=== PATIENT | female | born 1985 | race Two or more races ===

== ENCOUNTER 2016-12-24 12:01 | Emergency (ER) | payer SELFPAY ==
[~2016-12-24] VITALS: Ht 157.5 cm; Wt 42.6 kg
[2016-12-24] MEDS ORDERED: IV NORMAL SALINE 1000ML BAG 1,000 ML IV SCH (12:34)
[2016-12-24] MEDS ORDERED: ONDANSETRON PF 4 MG/2 ML VIAL. IV ONE (12:45)
[2016-12-24] MEDS ORDERED: FENTANYL PF 100 MCG/2 ML VIAL. IV PRN (12:45)
[2016-12-24 13:00] LABS: BILIRUBIN,URINE NEGATIVE (NEG); GLUCOSE,URINE NEGATIVE (NEG); NITRITE,URINE NEGATIVE (NEG); PROTEIN,URINE NEGATIVE (NEG-TRACE)
[2016-12-24 13:06] LABS: BACTERIA,URINE 0 /HPF (0-FEW); RBC,URINE 0 /HPF (0-2); SQUAMOUS EPITHELIAL CELL,UR MOD /LPF; WBC,URINE 20-40 /HPF (0-4)
[2016-12-24 13:23] LABS: BASO % 1 % (0-3); EOS % 1 % (0-3); HEMATOCRIT 39.1 % (36.0-47.0); HEMOGLOBIN 13.1 g/dL (12.0-15.5); LYMPH # 2.1 x10^3/uL (1.0-4.8); LYMPH % 34 % (24-48); MEAN CORPUSCULAR HEMOGLOBIN 29 pg (25-35); MEAN CORPUSCULAR HGB CONC 34 g/dL (31-37); MEAN CORPUSCULAR VOLUME 88 fL (79-100); MONO % 8 % (0-9); NEUT % 56 % (31-73); PLATELET COUNT 249 x10^3/uL (140-400); RED BLOOD COUNT 4.47 x10^6/uL (3.50-5.40); RED CELL DISTRIBUTION WIDTH 13.2 % (11.5-14.5); WHITE BLOOD COUNT 6.3 x10^3/uL (4.0-11.0)
--- NOTE | 2016-12-24 13:26 | PHYS DOC ---
Past Medical History Past Medical History: No Pertinent History Past Surgical History: , Tubal ligation Alcohol Use: None Drug Use: None Adult General Chief Complaint Chief Complaint: NAUSEA/VOMITING/DIARRHA HPI HPI Patient is a 31 year old female who presents with 5 days of nonbloody nonbilious emesis associated with nausea and bilateral lower abdominal pain be pains. She also has chills and sweats. States pain has been constant. Last episode of emesis was last night. She denies abdominal swelling, dysuria, hematuria, diarrhea, constipation, bloody stools, cough, dyspnea, rhinorrhea, chest pain. She denies vaginal bleeding or discharge. Review of Systems Review of Systems Constitutional: Denies measured fever [] Eyes: Denies change in visual acuity, redness, or eye pain [] HENT: Denies nasal congestion or sore throat [] Respiratory: Denies cough or shortness of breath [] Cardiovascular: No additional information not addressed in HPI [] GI: Denies bloody stools or diarrhea [] : Denies dysuria or hematuria [] Musculoskeletal: Denies back pain or joint pain [] Integument: Denies rash or skin lesions [] Neurologic: Denies headache, focal weakness or sensory changes [] Endocrine: Denies polyuria or polydipsia [] Current Medications Current Medications Current Medications Medications (Trade) Dose Ordered Sig/Alejandra Start Time Stop Time Status Last Admin Dose Admin Fentanyl Citrate 50 mcg 50 mcg PRN Q15MIN PRN 12/24/16 12:45 12/24/16 16:51 DC 12/24/16 13:29 50 MCG Iohexol (Omnipaque 300 Mg/ml) 75 ml 1X ONCE 12/24/16 14:15 12/24/16 14:18 DC 12/24/16 14:54 75 ML Ondansetron HCl (Zofran) 4 mg 1X ONCE 12/24/16 12:45 12/24/16 12:46 DC 12/24/16 13:28 4 MG Sodium Chloride (Iv Sodium Chloride 0.9% 1000ml Bag) 1,000 ml @ 1,000 mls/hr Q1H 12/24/16 12:34 12/24/16 13:33 DC 12/24/16 13:29 1,000 MLS/HR Allergies Allergies Allergies Coded Allergies Type Severity Reaction Last Updated Verified No Known Drug Allergies 12/24/16 No Physical Exam Physical Exam Constitutional: Well developed, well nourished, no acute distress, non-toxic appearance. [] HENT: Normocephalic, atraumatic, bilateral external ears normal, oropharynx moist, nose normal. [] Eyes: PERRLA, EOMI. [] Neck: Normal range of motion, supple. [] Cardiovascular:Heart rate regular rhythm [] Lungs & Thorax: Bilateral breath sounds clear to auscultation [] Abdomen: Bowel sounds normal, soft, mild bilateral lower abdominal tenderness, no guarding or rebound. [] Skin: Warm, dry, no erythema, no rash. [] Back: No tenderness, no CVA tenderness. [] Extremities: No tenderness, ROM intact, no edema. [] Neurologic: Alert and oriented X 3, normal motor function, normal sensory function, no focal deficits noted. [] Psychologic: Affect normal, judgement normal, mood normal. [] Current Patient Data Vital Signs Vital Signs Date Time Temp Pulse Resp B/P Pulse Ox O2 Delivery O2 Flow Rate FiO2 12/24/16 14:30 16 100 Room Air 12/24/16 12:03 97.4 91 112/76 97.4 Lab Values Laboratory Tests Test 12/24/16 11:49 12/24/16 12:43 12/24/16 13:13 POC Urine HCG, Qualitative Hcg negative (Negative) Urine Collection Type Unknown Urine Color Yellow Urine Clarity Clear Urine pH 7.0 Urine Specific [place] <=1.005 Urine Protein Negativemg/dL (NEG-TRACE) Urine Glucose (UA) Negativemg/dL (NEG) Urine Ketones (Stick) Tracemg/dL (NEG) Urine Blood Negative (NEG) Urine Nitrite Negative (NEG) Urine Bilirubin Negative (NEG) Urine Urobilinogen Dipstick 1.0mg/dL (0.2 mg/dL) Urine Leukocyte Esterase Small (NEG) Urine RBC 0/HPF (0-2) Urine WBC 20-40/HPF (0-4) Urine Squamous Epithelial Cells Mod/LPF Urine Bacteria 0/HPF (0-FEW) White Blood Count 6.3x10^3/uL (4.0-11.0) Red Blood Count 4.47x10^6/uL (3.50-5.40) Hemoglobin 13.1g/dL (12.0-15.5) Hematocrit 39.1% (36.0-47.0) Mean Corpuscular Volume 88fL (79-100) Mean Corpuscular Hemoglobin 29pg (25-35) Mean Corpuscular Hemoglobin Concent 34g/dL (31-37) Red Cell Distribution Width 13.2% (11.5-14.5) Platelet Count 249x10^3/uL (140-400) Neutrophils (%) (Auto) 56% (31-73) Lymphocytes (%) (Auto) 34% (24-48) Monocytes (%) (Auto) 8% (0-9) Eosinophils (%) (Auto) 1% (0-3) Basophils (%) (Auto) 1% (0-3) Neutrophils # (Auto) 3.5x10^3uL (1.8-7.7) Lymphocytes # (Auto) 2.1x10^3/uL (1.0-4.8) Monocytes # (Auto) 0.5x10^3/uL (0.0-1.1) Eosinophils # (Auto) 0.1x10^3/uL (0.0-0.7) Basophils # (Auto) 0.0x10^3/uL (0.0-0.2) Sodium Level 139mmol/L (136-145) Potassium Level 3.5mmol/L (3.5-5.1) Chloride Level 103mmol/L (98-107) Carbon Dioxide Level 27mmol/L (21-32) Anion Gap 9 (6-14) Blood Urea Nitrogen 7mg/dL (7-20) Creatinine 0.7mg/dL (0.6-1.0) Estimated GFR (Cockcroft-Gault) 97.0 Glucose Level 97mg/dL (70-99) Calcium Level 9.4mg/dL (8.5-10.1) Total Bilirubin 0.5mg/dL (0.2-1.0) Direct Bilirubin 0.1mg/dL (0.0-0.2) Aspartate Amino Transferase (AST) 14U/L (15-37) L Alanine Aminotransferase (ALT) 18U/L (14-59) Alkaline Phosphatase 53U/L (46-116) Total Protein 8.3g/dL (6.4-8.2) H Albumin 4.1g/dL (3.4-5.0) Lipase 79U/L (73-393) Serum Test, Qualitative Negative (NEG) Laboratory Tests 12/24/16 13:13 Laboratory Tests 12/24/16 13:13 Radiology/Procedures Radiology/Procedures CT abdomen and pelvis with IV contrast IMPRESSION: No acute abdominal or pelvic finding. DICTATED and SIGNED BY: KEO JONES MD DATE: 12/24/16 1521 Course & Med Decision Making Course & Med Decision Making Pertinent Labs and Imaging studies reviewed. (See chart for details) Workup is unremarkable. She is feeling better after medication and tolerating oral intake. Abdomen soft and minimally tender. Return precautions given. She understands and agrees with plan. Dragon Disclaimer Dragon Disclaimer This electronic medical record was generated, in whole or in part, using a voice recognition dictation system. Departure Departure Impression: Primary Impression: Nausea & vomiting Additional Impression: Abdominal pain Disposition: HOME, SELF-CARE Condition: STABLE Referrals: NO PCP (PCP) Patient Instructions: Nausea and Vomiting, [id number] Additional Instructions: Take promethazine as needed for nausea. Take tramadol as needed for pain. Follow up with your primary care doctor within 1 week. Return for concerns. Scripts Tramadol Hcl 50 Mg Tablet1 Tab PO PRN Q6HRS PRN PAIN #10 TAB Prov:Erika JOHNSON MD 12/24/16 Promethazine Hcl 12.5 Mg Tablet1 Tab PO Q6HRS PRN NAUSEA #10 TAB Prov:Erika JOHNSON MD 12/24/16 Problem Qualifiers Primary Impression: Nausea & vomiting Vomiting type: unspecified Vomiting Intractability: non-intractable Qualified Code: R11.2 - Nausea with vomiting, unspecified Additional Impression: Abdominal pain Abdominal location: lower abdomen, unspecified Qualified Code: R10.30 - Lower abdominal pain, unspecified Erika JOHNSON MD Dec 24, 2016 13:26
[2016-12-24 13:40] LABS: NEG OBC SER NEG; POS OBC SER POS
[2016-12-24 13:42] LABS: CALCIUM 9.4 mg/dL (8.5-10.1); CREATININE 0.7 mg/dL (0.6-1.0); POTASSIUM 3.5 mmol/L (3.5-5.1)
[2016-12-24 13:46] LABS: ALBUMIN 4.1 g/dL (3.4-5.0); DIRECT BILIRUBIN 0.1 mg/dL (0.0-0.2); TOTAL BILIRUBIN 0.5 mg/dL (0.2-1.0); TOTAL PROTEIN 8.3 g/dL (6.4-8.2)
[2016-12-24] MEDS ORDERED: IOHEXOL 300 MG/ML 75 ML VIAL IV ONE (14:15)
--- NOTE | 2016-12-24 15:25 | RAD ---
EXAM: Abdomen and pelvis CT with intravenous contrast. HISTORY: Pain. TECHNIQUE: Computed tomographic images of the abdomen and pelvis were obtained following the administration of 75 cc Omnipaque 300 intravenous contrast. Multiplanar reformatting was performed. COMPARISON: None. FINDINGS: Evaluation of the lower thorax is unremarkable. There is fatty infiltration of the liver along the falciform ligament. The gallbladder, pancreas, spleen, adrenal glands and kidneys are unremarkable. No abnormally thickened or dilated loop of bowel is seen. The uterus is unremarkable. There are multiple ovarian follicles and there is a small amount of nonspecific pelvic free fluid. No suspicious osseous lesion is seen. There is no pathologically enlarged lymph node. IMPRESSION: No acute abdominal or pelvic finding. PQRS Compliance Statement: One or more of the following individualized dose reduction techniques were utilized for this examination: 1. Automated exposure control 2. Adjustment of the mA and/or kV according to patient size 3. Use of iterative reconstruction technique
[2016-12-24 16:15] VITALS: BP 113/65
[2016-12-24] MEDS ORDERED: PROM12.56 PO (16:22)
[2016-12-24] MEDS ORDERED: TRAM50TA PO (16:22)
== END 2016-12-24 16:40 | disposition home or self-care (01) ==
LOC: ER 12:01
DX: R11.2 Nausea with vomiting, unspecified (principal); R10.30 Lower abdominal pain, unspecified; R68.83 Chills (without fever); R61 Generalized hyperhidrosis
CPT/HCPCS: 36415; 74177; 80048; 80076; 81001; 81025; 83690; 84703; 85027; 87086; 96361; 96374; 96375; 99285; J2405; J3010; J7030; Q9967